=== PATIENT | male | born 1975 | race Caucasian/White ===

== ENCOUNTER 2023-06-01 10:58 | Emergency (ER) | payer OTHER, SELFPAY ==
[2023-06-01 11:06] VITALS: BP 139/80; PULSE 87; RESP 16; TEMP 36.6; O2SAT 95; BMI 34.7
--- NOTE | 2023-06-01 11:36 | ED_ITS ---
History of Present Illness General Chief Complaint: Epistaxis/Nosebleed Stated Complaint: Nose bleed Time Seen by Provider: 06/01/23 11:01 History of Present Illness HPI Narrative: This 47-year-old male comes in reporting recurrent epistaxis over the past 2 or 3 days. He states that it is coming from his right nostril. He feels like there is a lump on the right nostril in lateral aspect. He is not on any anticoagulants. He does take metformin but otherwise is not on any other med icines and has good health. He states that the nosebleed can recur after blowing his nose. Related Data Home Medications Medication Instructions Recorded Confirmed metformin 500 mg tablet,extended 1,000 mg PO BID 06/01/23 06/01/23 release 24 hr Allergies Allergy/AdvReac Type Severity Reaction Status Date / Time No Known Allergies Allergy Verified 06/01/23 11:12 Review of Systems Status of ROS: Reports: 10 or more systems reviewed and unremarkable except as noted in History and below Narrative: Constitutional: No fevers, no weight gain or loss. Eyes: No discharge. No vision changes. HENT: No congestion, no sore throat, no ear pain. Nose bleed as described above. Cardiovascular: No chest pain, no palpitations. Respiratory: No shortness of breath, no wheezes, no cough. Gastrointestinal: No abdominal pain, no vomiting, no diarrhea. Genitourinary: No dysuria, no hematuria. Musculoskeletal: Normal range of motion. Skin: No rashes, no pruritis. Neurological: No dizziness, weakness, sensory change, speech change. Endo/Heme/Allergies: No bruising or bleeding. No polydipsia. Pysch: no suicidality, no anxiety, no insomnia. All other systems reviewed and are negative. PFSH PFS Social History Smoking Status: Current every day smoker What tobacco products do you use: cigarettes How often do you have a drink containing alcohol: never AUDIT-C Alcohol total score: 0 Non-prescribed substance use: denies use Exam Narrative: Exam Narrative: Constitutional: Well-developed, well-nourished, no acute distress. HEENT: Normocephalic, atraumatic. Right nostril has no active bleeding but there is sign of previous bleeding site on the lateral aspect of the distal portion of the right nostril. No posterior bleeding. Neck: Normal range of motion. Nontender. Supple. Heart: Intact distal pulses. Lungs: No chest discomfort. No wheezes, rhonchi, or rales. Abdomen: Nontender. Back: Normal range of motion. Extremities: Normal range of motion. No injury. Skin: Intact. No rash. Warm. No erythema or pallor. Neurologic: No altered sensation. No weakness. Alert and oriented. Psychiatric: No suicidality. No anxiety or depression. No insomnia. Nursing notes and vitals signs are reviewed. Const: Vital Signs, click to edit/add: Vital Signs - 24 hr 06/01/23 11:06 Temperature 97.8 F Pulse Rate [Left P ulse Oximeter] 87 Respiratory Rate 16 Blood Pressure [Le ft Upper Arm] 139/80 Pulse Oximetry 95 Oxygen Delivery Me thod Room Air Course Vital Signs Vital signs: Initial Vital Signs Temperature 97.8 F 06/01/23 11:06 Temperature Source Temporal Artery Scan 06/01/23 11:06 Pulse Rate 87 06/01/23 11:06 Respiratory Rate 16 06/01/23 11:06 Blood Pressure 139/80 06/01/23 11:06 Blood Pressure Mean 99 06/01/23 11:06 Blood Pressure Position Sitting 06/01/23 11:06 Pulse Oximetry 95 06/01/23 11:06 Oxygen Delivery Method Room Air 06/01/23 11:06 Vital Signs Temperature 97.8 F 06/01/23 11:06 Pulse Rate 87 06/01/23 11:06 Respiratory Rate 16 06/01/23 11:06 Blood Pressure 139/80 06/01/23 11:06 Pulse Oximetry 95 06/01/23 11:06 Oxygen Delivery Method Room Air 06/01/23 11:06 Temperature 97.8 F 06/01/23 11:06 Pulse Rate 87 06/01/23 11:06 Respiratory Rate 16 06/01/23 11:06 Blood Pressure 139/80 06/01/23 11:06 Pulse Oximetry 95 06/01/23 11:06 Oxygen Delivery Method Room Air 06/01/23 11:06 MDM - Epistaxis MDM Narrative Medical decision making narrative: This patient has recurrent epistaxis from the right nostril. He does state that the air in his home is rather dry as the furnace does not have a humidifier. Currently he is not bleeding. The patient did receive a dose of Afrin and instructions were given regarding strategies for rebleeding. He did receive a nasal clamp. I also recommended that he use some kind of ointment especially at night to moisturize the inner aspect of his nostrils bilaterally. Discharge Plan Discharge Clinical Impression: Epistaxis Patient Disposition: Home, Self-Care Condition: Stable Additional Instructions: Use Afrin as directed only if rebleeding occurs. Use nasal clamp for rebleeding to provide direct pressure. Use some kind of ointment especially at night to moisturize the inner aspect of each nostril. Follow up with MD or return if worsening. Prescriptions: No Action metformin 500 mg tablet extended release 24 hr 1,000 mg PO BID Stand Alone Forms: [employer] Info Instructions
[2023-06-01] MEDS: OXYMETAZOLINE 0.05% NASAL SPRAY 1 SPRAY NOSTRIL-R (11:41)
== END 2023-06-01 11:55 | disposition home or self-care (01) ==
LOC: ED 11:53
PROVIDERS: Emergency Provider Emergency Medicine Emergency Medical Services
DX: R04.0 Epistaxis (principal)
CPT/HCPCS: 99283; 99284; A9270